=== PATIENT | female | born 1940 | race Caucasian/White ===

== ENCOUNTER 2017-01-14 10:11 | Observation (INO) | payer MEDICARE ==
[~2017-01-14] VITALS: Ht 162.6 cm; Wt 68.3 kg
[2017-01-14] VITALS (8 sets, daily range): BP systolic 100–120; BP diastolic 61–72; PULSE 45–57; RESP 17–20; O2SAT 95–99
--- NOTE | 2017-01-14 10:17 | ED.REPORT ---
HPI-Stroke / CVA Jan 14, 2017 ED Provider: Rodrick Mccord MD Pt is a 76 y/o female w/ a hx of hyperlipidemia, anxiety and panic attacks, presenting to the ED with her due to now resolved speech difficulties onset 09:45 today. The patient woke up this morning and suddenly was speaking irregularly and wasn't able to get her words out. She then began to hyperventilate and become extremely anxious. She arrives to the ED extremely anxious, hyperventilating, and has no neurological symptoms. denies facial droop, focal numbness or weakness, CP, abdominal pain, fever, chills, CANO , dizziness. Nursing Notes Stated Complaint: STROKE SYMPTOMS Nursing Notes Reviewed: Yes Allergies: Uncoded Allergies: NKDA (Allergy, Unknown, 05/17/04) NO KNOWN DRUG ALLERGIES (Ingr Allergy) (Allergy, Unknown, Y, 05/17/04) General Time Seen by Provider: 10:20 Chief Complaint Unable to speak Hx Obtained From: Patient Arrived By: Walk-in Time last known well 09:45 Sudden in Onset?: Yes Symptom Duration: 16 - 30 minutes Progression Since Onset: Resolved Severity: Current: No pain currently Severity: Maximum: No pain Risk Factors NIH Stroke Scale Level of Consciousness: Alert and responsive (0) Ask Month & Age: Both questions right (0) Open/Close Eyes/Hand Senior Enterprise Architect: Performs both tasks (0) Horizontal EO Movements: None (0) Visual Ferraro: No visual loss (0) Facial Palsy: Normal symmetry (0) Right Arm Motor Drift (10s): No drift 10 sec (0) Left Arm Motor Drift (10s): No drift 10 sec (0) Right Leg Motor Drift (5s): No drift 5 sec (0) Left Leg Motor Drift (5s): No drift 5 sec (0) Limb Ataxia FNF/Heel-Hamlin: Ataxia in 1 limb (1) (LUE) Sensation (Arms/Legs/Face): No sensory loss (0) Language Aphasia: No aphasia, normal (0) Dysarthria: No dysarthria, normal (0) Extinction/Inattention: No exctinct/inattent (0) NIHSS Score: 1 Time NIHSS Performed: 11:02 Date NIHSS Performed: Jan 14, 2017 Past Medical History Past Medical History Anxiety Hyperlipidemia Chronic hip pain Spondylolisthesis lumbar spine Ectatic abdominal aorta DDD lumbar spine Right breast CA Past Surgical History None reported Family History Noncontributory Smoking History Never Smoker Social History Much of prior medical care in [place] Alcohol Use: Denies alcohol use Drug Use: Denies drug use Other Social History: , Local resident Ambulatory Status Independent Review of Systems Constitutional: Denies: Chills, Fever Respiratory: Denies: Non-productive cough, Shortness of breath Cardiovascular: Denies: Chest pain, Dyspnea on exertion GI: Denies: Abdominal pain, Diarrhea, Nausea, Vomiting Neurologic: Reports: Unable to speak (difficulty), Denies: Abnormal movement, Bladder dysfunction, Bowel dysfunction, Change LOC , Confusion, Dizziness, Focal weakness, Headache, Lightheaded, Numbness, Problem walking, Seizure, Shaking, Spinning sensation, Syncope, Vision change, Weakness Psychiatric: Reports: Anxiety Complete sys rev & neg: except as marked. Physical Exam Initial Vital Signs Vital Signs (First) Date Time Temp Pulse Resp B/P Pulse Ox O2 Delivery O2 Flow Rate FiO2 01/14/17 10:19 52 17 112/72 99 Room Air 01/14/17 10:48 36.8 Initial VS: Reviewed ENT: Mucous membranes moist, Conjunctiva normal, No scleral icterus Abdomen / GI: Soft, Non-tender, No guarding, No rebound, No distention Extremities: Vascular intact, Neuro intact, No swelling, No tenderness Skin: Warm, Dry, No cyanosis General/Constitutional: Awake, Alert, Well appearing, Cooperative, Not toxic appearing Extremely anxious Head / Eyes: Atraumatic, Normocephalic, PERRL, EOMI Respiratory / Chest: Breath sounds NL, Breath sounds = bilat, No respiratory distress, No rales, No rhonchi, No wheezing, No retractions, No stridor Hyperventilating Cardiovascular: Heart rate NL, Regular rhythm, Heart sounds NL, No gallop, No murmurs, No rubs, Cap refill not delayed, Peripheral circulation NL Neurologic: Oriented X3, Speech NL, No motor deficits, No sensory deficits, CN II - XII intact, Cerebellar NL, Memory NL No pronator drift Senior Enterprise Architect strength equal BLE strength equal NIH = 1 per search planner: 1 point for mild LUE ataxia Psychiatric: No hallucinations, Cognitive function NL Extremely anxious Interpretation & Diagnostics Lab Results Interpretation Result Diagram: 01/14/17 1100 01/14/17 1100 Test 01/14/17 11:00 White Blood Count 8.7th/mm3 (3.8-10.1) Red Blood Count 4.43mil/mm3 (3.90-5.20) Hemoglobin 13.0g/dL (12.0-15.6) Hematocrit 38.4% (35.0-46.0) Mean Corpuscular Volume 86.7fL (81-100) Mean Corpuscular Hemoglobin 29.3pg (27.0-35.0) Mean Corpuscular Hemoglobin Concent 33.9% (32.0-37.0) Red Cell Distribution Width 15.2% (12.3-15.4) Platelet Count 320bil/L (150-400) Neutrophils (%) (Auto) 71.3% (40-74) Lymphocytes (%) (Auto) 15.7% (14-46) Monocytes (%) (Auto) 10.0% (4-12) Eosinophils (%) (Auto) 2.2% (0-5) Basophils (%) (Auto) 0.2% (0-3) Prothrombin Time 10.2sec (8.1-12.5) Prothromb Time International Ratio 0.95ratio Activated Partial Thromboplast Time 26.1sec (22.8-33.0) Sodium Level 137mEq/L (134-144) Potassium Level 4.0mEq/L (3.5-5.2) Chloride Level 102mEq/L (97-108) Carbon Dioxide Level 22mmol/L (18-29) Blood Urea Nitrogen 24mg/dL (8-27) Creatinine 1.08mg/dL (0.57-1.00) Estimat Glomerular Filtration Rate 70mL/min (>59) Glucose Level 99mg/dL (60-99) Calcium Level 9.6mg/dL (8.5-10.1) Total Bilirubin 0.3mg/dL (0.0-1.2) Aspartate Amino Transf (AST/SGOT) 26U/L (0-50) Alanine Aminotransferase (ALT/SGPT) 22U/L (0-32) Alkaline Phosphatase 47U/L (25-165) Troponin T 0.010ug/L (0.0-0.011) Total Protein 6.7g/dL (6.4-8.4) Albumin 3.8g/dL (3.4-5.0) Hold Rojas Top Tube Received (Received) ECG Interpretation ECG Interpretation: Sinus bradycardia rate 50 Time: 11:04 Interpreted by: ED physician Normal ECG Interpretation: Normal sinus rhythm, No acute ischemic changes, Normal QRS, Normal axis, Normal intervals, No change from prior ECGs, Adequate tracing CT Head Interpretation IMPRESSION: 1. No acute intracranial abnormality. 2. Moderate chronic white matter small vessel ischemic changes limiting evaluation for superimposed acute process. If clinical concern persists, recommend further evaluation with MRI. Dictated by: Mauri Vazquez M.D. on 01/14/2017 at 10:49 Approved by: Mauri Vazquez M.D. on 01/14/2017 at 10:51 Study: Head CT no contrast Interpretation / Wet Read by: Interpret - Radiologist Re-Eval/Medical Decision Med Decision/Clinical Course Pt is a 76 y/o female w/ a hx of hyperlipidemia, anxiety and panic attacks, presenting to the ED with her due to now resolved speech difficulties onset 09:45 today. The patient woke up this morning and suddenly was speaking irregularly and wasn't able to get her words out. She then began to hyperventilate and become extremely anxious. She arrives to the ED extremely anxious, hyperventilating, and has no neurological symptoms. denies facial droop, focal numbness or weakness, CP, abdominal pain, fever, chills, CANO , dizziness. Here in the emergency department the patient is clearly panicking/anxious and in my assessment has no focal findings on her neurologic examination. She is speaking clearly and fluently in full sentences. Given her rapid resolution of neurologic symptoms she is not a TPA candidate. Meds given: Ativan due to extreme anxiety Labs notable as below: CBC: Unremarkable CMP: Unremarkable Coag studies: normal EKG: Sinus bradycardia rate 50, Normal sinus rhythm, No acute ischemic changes, Normal QRS, Normal axis, Normal intervals, No change from prior ECGs, Adequate tracing CT Head: 1. No acute intracranial abnormality. 2. Moderate chronic white matter small vessel ischemic changes limiting evaluation for superimposed acute process. If clinical concern persists, recommend further evaluation with MRI. Overall presentation consistent with possible TIA though clinical picture is confounded by presence of extreme panic and anxiety. The story I am given is that she developed speech difficulties resulting in panic and anxiety though the entirety of her symptoms could presumably be caused by panic attack as well. At this time CT scan demonstrates no acute hemorrhagic process and she has no ongoing lateralizing neurologic deficits. Patient was discussed with admitting hospitalist accepted for further CVA risk stratification. She was transferred in stable condition. Re-Evaluation/Progress : Time of Eval: 11:49 Re-Evaluation/Progress Note: Pt rechecked. Informed pt of need for admission for TIA workup. Pt understands and agrees with plan for admission. All questions addressed. Consultation : Referral / Consult Name: Kendall Garcia Consulted With: Hospitalist Call Returned at: 11:52 Dredge Runner: Will see patient, Agrees with eval, Agrees with plan, Accepts admit Counseled Regarding: Diagnosis, Lab results, Need for admission Patient Discharge & Departure Impression: Primary Impression: Transient ischemic attack Transient cerebral ischemia type: unspecified Qualified Code: G45.9 - Transient cerebral ischemic attack, unspecified Additional Impressions: Anxiety Panic attack Disposition: ADMITTED TO HOSPITAL Discharge Condition All VS Reviewed: Yes Condition: Stable Referrals: Mike Evans DO (PCP) Branden Attestation Portions of this note were transcribed by Oscar Denney. I, Dr. Mccord personally performed the history, physical exam and medical decision-making; I reviewed and confirmed the accuracy of the information in the transcribed note. Signed by Branden Evans, 01/14/17 - 1030 copies to: Mike Evans Beck O MD Jan 14, 2017 10:17 OSCAR DENNEY Jan 14, 2017 10:24
[2017-01-14] MEDS ORDERED: Alum-Mag Hydrox-Simeth 30 mL Suspension PO PRN ×2 (10:30→16:30)
[2017-01-14] MEDS ORDERED: Ondansetron 2 mg/mL 2 mL Inj IVPUSH PRN ×2 (10:30→16:30)
--- NOTE | 2017-01-14 10:59 | DRSVH ---
PROCEDURE: CT BRAIN WITHOUT CONTRAST ([id number]) INDICATIONS: TIA symptoms. Word finding difficulty. TECHNIQUE: Noncontrast 4.5 mm thick angled axial sections acquired from the foramen magnum to the vertex, with c oronal reformats. COMPARISON: [facility], MR, MR BRAIN WO CON, 03/21/2016, 17:13. FINDINGS: Image quality: Excellent. CSF spaces: Basal cisterns are patent. No extra-axial fluid collections. The ventricles are symmet abiodun in size and shape. There is [id number] cerebral volume loss, with resultant ventricular an d sulcal prominence. Brain: No intracranial hemorrhage, mass, or mass effect. There are confluent subcortical, periventr icular and deep white matter hypodensities consistent with moderate chronic small vessel ischemic amisha nges. There is intracranial internal carotid artery atherosclerosis. Skull and face: Calvarium and visualized facial bones appear intact, without suspicious lesions. Sinuses: Visualized sinuses and mastoids are clear. IMPRESSION: 1. No acute intracranial abnormality. 2. Moderate chronic white matter small vessel ischemic changes limiting evaluation for superimposed acute process. If clinical concern persists, recommend further evaluation with MRI. Dictated by: Mauri Vazquez M.D. on 01/14/2017 at 10:49 Approved by: Mauri Vazquez M.D. on 01/14/2017 at 10:51
--- NOTE | 2017-01-14 11:02 | NUR ---
Evaluation completed. Please go to "Notes" then click on "Assessments and Notes" (bottom left corner of screen). Then select appropriate discipline tab on top of screen.
[2017-01-14 11:23] LABS: BASOPHILS % (AUTO) 0.2 % (0-3); EOSINOPHILS % (AUTO) 2.2 % (0-5); Mean Corpuscular Hemoglobin 29.3 pg (27.0-35.0); Mean Corpuscular Volume 86.7 fL (81-100); NEUTROPHILS % (AUTO) 71.3 % (40-74); Platelet Count 320 bil/L (150-400)
[2017-01-14 11:28] LABS: INR 0.95 ratio
[2017-01-14 11:36] LABS: TROPONIN T 0.01 ug/L (0.0-0.011)
[2017-01-14] MEDS ORDERED: LIP40 PO (12:40)
[2017-01-14] MEDS ORDERED: ALEN35TA31 PO (12:40)
[2017-01-14] MEDS ORDERED: UBID30CA8 PO (12:41)
[2017-01-14] MEDS ORDERED: HYDR-3605 PO (12:42)
[2017-01-14] MEDS ORDERED: MULT-1018 PO (12:43)
[2017-01-14] MEDS ORDERED: LEVO50TA6 PO (12:43)
[2017-01-14] MEDS ORDERED: [UNRECOGNIZED DRUG - CODE] PO (12:44)
[2017-01-14] MEDS ORDERED: VIT1TABL83 PO (12:45)
[2017-01-14] MEDS ORDERED: SERT100T9 PO (12:45)
[2017-01-14] MEDS ORDERED: CHOL200047 PO (12:46)
[2017-01-14] MEDS ORDERED: RESV250C2 PO (12:57)
--- NOTE | 2017-01-14 15:46 | NUR ---
ADMIT NOTE Admitted a 76/F into room 3014 following report from SALAZAR Mcdermott RN. Pt arrived via stretcher, able to amb to bed with SBA. Pt reports feeling "a little lightheaded" with change of position. Pt denies any pain/discomfort. IV patent, flushing easily. Pt on RA, denies any SOB/distress at this time. Family at bedside. Symptoms have resolved thus far, neuro checks negative. Pt reports "a terrible memory." Tele placed on pt, SB per monitoring manager in the 40-50's. Pt introduced to staff, bed/call light controls. Bed in lowest, locked position and call light in reach. Addendum: 01/14/17 at 1820 by EDDY HENDRICKS RN Pt seen by FINISHING TRIMMER prior to admitting to floor.
[2017-01-14] MEDS ORDERED: 0.9% Sodium Chloride 1,000 ML IV ONE (16:30)
[2017-01-14] MEDS ORDERED: Polyethylene Glycol (PEG) 17 Gm Powder PO PRN (16:30)
[2017-01-14] MEDS ORDERED: Labetalol 5 mg/mL 4 mL Inj IVPUSH PRN (16:30)
--- NOTE | 2017-01-14 17:13 | PCM.HPMED ---
Subjective Date of Service Jan 14, 2017 Primary Provider: Admitting Physician: Kendall Garcia Primary Care Physician: Mike Evans DO Attending Physician: Kendall Garcia Chief Complaint: slurred speech History of Present Illness: 76 year old, right-handed female with past medical history notable for hypertension, hypercholesterolemia, hypothyroidism, and depression/anxiety disorder presents with transient episode of "word salad" and word finding difficulty. Patient's reports that around 9:30 AM today patient was first noted to be somewhat diaphoretic and weak. She then came to the and seemingly wanted to ask if she took her pills but the only intelligible words were "did I" and the rest of her words were garbled and unintelligible. Patient reports that she realized that she was having difficulty with her speech at the time. She says she was having difficulty finding words and had a hard time uttering the words. Her helped her dress up and by the time they got in to the car to come to the hospital, which was about 20 minutes later , her speech seemed to have had returned back to normal. Patient denies any other associated weakness, numbness, paraesthesia, or change in her vision. Her notes that patient has a history of falls in the past that has been more frequent in the past one to two months. Her daughter also notes that patient seems have ongoing and worsening problem with short term memory and there is concern that she might be developing dementia. Her further notes that patient has severe depression as well as anxiety disorder and this morning seemed to have one of her "major depression" episodes before the onset of her neurologic symptoms. She seems to also have increased BLACK over the past few months. In the ED patient was noted to be quite anxious and the only medication she received was a dose of Ativan. Review of Systems: Constitutional: Negative, except as otherwise mentioned in the history above. Ophthalmologic: Negative, except as otherwise mentioned in the history above. Cardiovascular: Negative, except as otherwise mentioned in the history above. Respiratory: Negative, except as otherwise mentioned in the history above. Gastrointestinal: Negative, except as otherwise mentioned in the history above. Genitourinary: Negative, except as otherwise mentioned in the history above. Musculoskeletal: Negative, except as otherwise mentioned in the history above. Neurological: Negative, except as otherwise mentioned in the history above. Psychiatric: Negative, except as otherwise mentioned in the history above. Hematologic/Lymphatic: Negative, except as otherwise mentioned in the history above. Allergic/Immunologic: Negative, except as otherwise mentioned in the history above. Allergies Coded Allergies: No Known Drug Allergies (Verified Allergy, Unknown, 01/14/17) Home Medications Atorvastatin 40 Mg Tablet (Lipitor) 40 Mg PO HS HydrOXYzine HCl 10 Mg Tablet 10 Mg PO HS Naproxen Sodium 500 Mg Tbmp.24hr (Naproxen Sodium Cr) 500 Mg PO BID Sertraline HCl 100 Mg Tablet (Sertraline) 150 Mg PO DAILY 30 Days Levothyroxine 50 Mcg Tablet 50 Mcg PO DAILY Cholecalciferol (Vitamin D3) 2,000 Unit Capsule (Vitamin D3) 2,000 Unit PO DAILY Multivitamin 1 Each Tablet (Multi Vitamin Daily) 1 Each PO DAILY 30 Days Vit B Comp/C/FA/Iron/Vit E 1 Each Tablet (Vitamin B Complex Tablet) 1 Each PO DAILY Alendronate 35 Mg Tablet 70 Mg PO WEEKLY Resveratrol 250 Mg Capsule 250 Mg PO DAILY Ubidecarenone 30 Mg Capsule (Co Q-10) 30 Mg PO DAILY Exam Vital Signs & I/O Vital Sign- Last 8 Hours Date Time Temp Pulse Resp B/P Pulse Ox O2 Delivery O2 Flow Rate FiO2 01/14/17 12:52 46 01/14/17 12:41 36.7 45 18 120/69 99 Room Air 01/14/17 12:19 52 20 109/64 96 Room Air 01/14/17 10:48 36.8 51 20 107/61 98 Room Air 01/14/17 10:19 52 17 112/72 99 Room Air Lab & Micro Results Laboratory Tests Test 01/14/17 11:00 White Blood Count 8.7th/mm3 (3.8-10.1) Red Blood Count 4.43mil/mm3 (3.90-5.20) Hemoglobin 13.0g/dL (12.0-15.6) Hematocrit 38.4% (35.0-46.0) Mean Corpuscular Volume 86.7fL (81-100) Mean Corpuscular Hemoglobin 29.3pg (27.0-35.0) Mean Corpuscular Hemoglobin Concent 33.9% (32.0-37.0) Red Cell Distribution Width 15.2% (12.3-15.4) Platelet Count 320bil/L (150-400) Neutrophils (%) (Auto) 71.3% (40-74) Lymphocytes (%) (Auto) 15.7% (14-46) Monocytes (%) (Auto) 10.0% (4-12) Eosinophils (%) (Auto) 2.2% (0-5) Basophils (%) (Auto) 0.2% (0-3) Prothrombin Time 10.2sec (8.1-12.5) Prothromb Time International Ratio 0.95ratio Activated Partial Thromboplast Time 26.1sec (22.8-33.0) Sodium Level 137mEq/L (134-144) Potassium Level 4.0mEq/L (3.5-5.2) Chloride Level 102mEq/L (97-108) Carbon Dioxide Level 22mmol/L (18-29) Blood Urea Nitrogen 24mg/dL (8-27) Creatinine 1.08mg/dL (0.57-1.00) Estimat Glomerular Filtration Rate 70mL/min (>59) Glucose Level 99mg/dL (60-99) Calcium Level 9.6mg/dL (8.5-10.1) Total Bilirubin 0.3mg/dL (0.0-1.2) Aspartate Amino Transf (AST/SGOT) 26U/L (0-50) Alanine Aminotransferase (ALT/SGPT) 22U/L (0-32) Alkaline Phosphatase 47U/L (25-165) Troponin T 0.010ug/L (0.0-0.011) Total Protein 6.7g/dL (6.4-8.4) Albumin 3.8g/dL (3.4-5.0) Hold Rojas Top Tube Received (Received) Result Diagram: 01/14/17 1100 01/14/17 1100 PMH 1. Hypertension 2. Hyperlipidemia 3. Anxiety 4. Depression 5. Hypothyroidism 6. Possible early stages of dementia Family History Notable for mother with stroke and father with LA in his 80's Social History Hx Alcohol Use: No Hx Substance Use: No Hx Tobacco Use: No Smoking Status: Never Smoker Living Arrangement: with Family Exam Vital Signs Vital Sign - Last Date Time Temp Pulse Resp B/P Pulse Ox O2 Delivery O2 Flow Rate FiO2 01/14/17 12:52 46 01/14/17 12:41 36.7 18 120/69 99 Room Air General: Alert, Oriented X3, Cooperative, No Acute Distress Head: Normal Eyes: PERRLA, EOMI, Scleral Anicteric Nose: Mucous Membr Moist/[place] Mouth: Mucous Membr Moist/[place] Neck: Supple Chest & Lungs: Chest Wall Normal, Clear to auscultation & percussion Cardiovascular: Regular Rate/Rhythm Pulses: NL carotid, radial, femoral, DP, PT Abdomen: Non-tender, Non-distended, Normoactive bowel tones, Soft Extremities: No cyanosis/clubbing/edma bilat Skin: Other (no significant ulcer or rash) Neurological: Grossly Neurologically Intact, Cranial Nerves 2-12 Intact, Normal Speech, Strength Normal 4/4 ext, Sensation Intact Lymphatic: Other Lymph Nodes (no significant lymphadenopathy) Additional Information: Psych: appropriate affect, calm Lab and Diagnostics Result Diagram: 01/14/17 1100 01/14/17 1100 X-Rays, CTs and MRIs Date of Service: 01/14/17 1024 PROCEDURE: CT BRAIN WITHOUT CONTRAST ([id number]) IMPRESSION: 1. No acute intracranial abnormality. 2. Moderate chronic white matter small vessel ischemic changes limiting evaluation for superimposed acute process. If clinical concern persists, recommend further evaluation with MRI. Dictated by: Mauri Vazquez M.D. on 01/14/2017 at 10:49 Approved by: Mauri Vazquez M.D. on 01/14/2017 at 10:51 12-lead ECG sinus dea at about 50 bpm. no old EKG for comparison Assessment & Plan 76 year old, right-handed female with past medical history notable for hypertension, hypercholesterolemia, hypothyroidism, and depression/anxiety disorder presents with transient episode of "word salad" and word finding difficulty. # Suspected acute transient ischemic attack (TIA), present prior to admission. Symptoms resolved. - Tele - MRI brain per stroke protocol - Echo - Carotid U/S - Start ASA daily - Continue home dose Lisinopril - Fasting Lipid check - PT/OT/ST # History of hyperlipidemia - Fasting lipid panel - Lipitor # ? History of hypertension, currently normotensive - Permissive hypertension at this time given possible TIA - IV Labetalol prn # History of hypothyroidism - Check TSH - Continue with Levothyroxine # History of depression and anxiety. Currently stable - Continue with home meds # Possible early stages of dementia. - Currently oriented x 3 - Will defer further followup and management to PCP as outpatient at this time GI Prophylaxis: Not indicated VTE Prophylaxis: Sub-Q Heparin (Unfractionated) Resuscitation Status: CPR: Attempt Resuscitation (discussed and verified with patient) Time spent 65 min Kendall Garcia Jan 14, 2017 17:13
[2017-01-14] MEDS: Heparin 5,000 Unit/mL Inj SUBQ SCH (17:44)
[2017-01-14 19:34] LABS: APPEARANCE,URINE CLEAR (CLEAR,HAZY); COLOR,URINE YELLOW (YELLOW); OCCULT BLOOD,URINE NEGATIVE (NEGATIVE); PH,URINE 6.5 (5.0-8.0)
[2017-01-14 19:35] LABS: UROBILINOGEN,URINE NORMAL (NORMAL)
[2017-01-14] MEDS: hydrOXYzine Pamoate 25 mg Capsule PO SCH (21:10)
[2017-01-15] VITALS (8 sets, daily range): BP systolic 94–115; BP diastolic 55–70; PULSE 50–58; RESP 18; O2SAT 96–98
--- NOTE | 2017-01-15 02:35 | NUR ---
Sinus Antony Tele report at 0226: SB,HR down to 39,not sustain,then back to 44. Pt sleeping, asymptomatic. Dr. Guzmán paged. No order given. Continue monitoring
[2017-01-15] MEDS: Heparin 5,000 Unit/mL Inj SUBQ SCH ×2 (05:02→16:44)
[2017-01-15 06:27] LABS: Mean Corpuscular Hemoglobin 29.5 pg (27.0-35.0); Mean Corpuscular Volume 89.1 fL (81-100)
--- NOTE | 2017-01-15 06:34 | NUR ---
Low urine output Low urine output, 275ml/12hr night, bladder scan PVR 142ml, oral fluids encouraged, NS 75ml/hr running.
[2017-01-15 06:53] LABS: Magnesium 2.3 mg/dL (1.6-2.6)
[2017-01-15] MEDS: 0.9% Sodium Chloride 1,000 ML IV SCH ×2 (08:28→21:28)
[2017-01-15] MEDS ORDERED: RESVERATROL 250 MG PO SCH (08:30)
[2017-01-15] MEDS ORDERED: UBIDECARENONE 30 MG PO SCH (08:30)
--- NOTE | 2017-01-15 09:52 | NUR ---
Off unit Pt off unit to MRI, [employer] notified. Addendum: 01/15/17 at 1406 by EDDY HENDRICKS RN Pt back on unit at 1030, [employer] notified.
--- NOTE | 2017-01-15 10:52 | NUR ---
Evaluation completed. Please go to "Notes" then click on "Assessments and Notes" (bottom left corner of screen). Then select appropriate discipline tab on top of screen.
--- NOTE | 2017-01-15 11:22 | DRSVH ---
PROCEDURE: MRI STROKE PROTOCOL ([id number]) Pre- and post-contrast brain MRI, non-contrast brain MR angiogram, pre- and postcontrast neck MR aleah ogram INDICATIONS: transient slurred speech TECHNIQUE: Brain: Noncontrast axial T1 spin echo, axial T2 fast spin echo, sagittal and axial FLAIR, coronal T2 fast spin echo, axial gradient echo, axial diffusion and ADC through the brain. After the administr ation of contrast, axial 3D VIBE of the cranial vasculature and brain. Brain MRA: Non-contrast 3-D time of flight MR angiogram, with multiple ndxcydg-dbvtbuoqa-myioccyeuy (MIP) reformats performed. Neck MRA: Axial and sagittal TruFISP through the neck. Coronal dynamic MR angiogram during administ ration of contrast in the arterial and venous phases, with 3-dimenstional qhibvdv-nspvcjerb-ssadvedty n (MIP) reformats constructed from subtraction images. COMPARISON: [facility], MR, MR BRAIN WO CON, 03/21/2016, 17:13. FINDINGS: Image quality: Diagnostic. Motion artifact is present on several imaging sequences. BRAIN: Brain: There is no acute intra-axial or extra-axial hemorrhage. No extra-axial fluid collection is i dentified. There is no midline shift or mass effect. The orbits are grossly unremarkable. No focal p arenchymal masses are identified. There is no parenchymal edema. The confluent and scattered focal areas of increased flair signal are seen within the periventricular and deep white matter of the supr atentorial brain, most pronounced within the frontal, parietal, and occipital lobes. This appearance is similar to the prior study. No restricted diffusion is present. The midline intracranial struct ures are within normal limits. The major expected intracranial flow voids are visualized and unremar kable. No abnormal enhancement is present on the postcontrast images. No enhancing lesions are iden tified. The ventricles and cortical sulci are age-moderately prominent. Bones: The imaged osseous structures are grossly intact. No suspicious osseous lesions are identifie d. The included paranasal sinuses and mastoid air cells are clear. Extracranial soft tissues: The imaged overlying soft tissues of the face and head are grossly unremar kable. BRAIN MR ANGIOGRAM: Anterior circulation: Intracranial internal carotid arteries are normal in size and enhancement. Th e flow within the paired anterior cerebral arteries is normal and symmetric. The flow within the mid dle cerebral arteries is normal and symmetric. The anterior communicating artery is seen. No stenos es, occlusions, or aneurysms. Posterior circulation: The left vertebral artery is dominant when compared to the right and deforms t he basis for the basilar artery. The right vertebral artery is very small in size and terminates wit hin the right posterior inferior cerebellar artery. The flow within the posterior cerebral arteries i s normal and symmetric. No stenoses, occlusions, or aneurysms. NECK MR ANGIOGRAM: Carotids: There is a bovine aortic arch. While not adequately evaluated on this examination the asc ending thoracic aorta is measuring within the upper limits of normal for size at approximately 3.9 cm (image 2, series 20). Mild luminal irregularity is noted involving the proximal bilateral carotid b ulbs with approximately 20-30% narrowing of the lumen of the vessel within these locations. Otherwis e, the remainder of the bilateral internal and common carotid arteries are within normal limits. No occlusion or aneurysm. Posterior circulation: The origins of the vertebral arteries are not well seen, particularly on the r ight.. More superior portions of both vertebral arteries demonstrate normal course and caliber, and join to form a normal appearing basilar artery. Miscellaneous: Subclavian arteries appear patent. Pre-contrast images through the neck show no soft tissue abnormalities. Degenerative changes of the cervical spine are age-appropriate. IMPRESSION: BRAIN MRI: 1. No acute intracranial hemorrhage or ischemia. 2. Extensive chronic small vessel ischemic changes. 3. No parenchymal masses or abnormal enhancement. BRAIN MR ANGIOGRAM: Patent and unremarkable intracranial vessels. No aneurysms or occlusions. NECK MR ANGIOGRAM: 1. Mild atherosclerotic irregularity of the bilateral carotid bulbs without hemodynamically signific ant stenosis. 2. 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 3. The ascending thoracic aorta appears to be measuring within the upper limits of normal at 3.9 cm. The estimate of stenosis included in the report of the imaging study was calculated using the NASCET method Dictated by: Thiago Garces M.D. on 01/15/2017 at 11:09 Approved by: Thiago Garces M.D. on 01/15/2017 at 11:21
--- NOTE | 2017-01-15 11:36 | NUR ---
Carotid doppler Per ultrasound, carotid doppler dc'd as pt rec'd a MRI this AM which gave clear images of neck vessels. MD fontanez.
--- NOTE | 2017-01-15 12:26 | NUR ---
Case Management: PEDRO PABLO given and explained to pt. Katelin LUCASRN
--- NOTE | 2017-01-15 12:27 | NUR ---
Social Work-initial assessment/readiness for discharge: Data:See initial assessment. Pt is a 76 y/o female who was admitted on 01/14/17 for TIA per H&P. Pt's insurance is [employer] and PCP is Mike Evans DO. EMR Reviewed. Pt's readmission score is 2. SHAKILA met with pt and Sandeep at bedside, SW role explained. Pt is alert and oriented x3. Pt resides at home with her where she remains independent with ADLs. Pt does not drive and has a fww at home. Pt has no HH or SNF history. Pt has no [employer] continuous churn care or [employer] benefits. SW discussed DPOA/ advanced directive, confirms they have not completed this, SW provided them with a copy of information. PT recommending home with HH and use of FWW. SW encouraged the use of FWW. order received for HH-RN and PT. SHAKILA discussed HH services with pt and , HH choice list provided. Pt and agreeable to HH with no agency preference. SHAKILA referred to rotating calendar and made referral to [facility] for RN and PT and spoke with Hanh. SHAKILA faxed referral into [phone], Hanh confirms they will be able to see the pt on Sunday. Hanh to call back after reviewing referral. feels like they have enough help at home and declines any other resources. SHAKILA provided pt and with phone number and plan on white board in room. F2F to be complete by . SHAKILA will continue to follow. Assessment:Pt who would benefit from HH. Plan:Pt to discharge home with support from . Referral made to [facility] for RN and PT, Hanh to call SW back after reviewing fax. F2F to be complete by . SHAKILA will continue to follow. MARIA E Sanders Addendum: 01/15/17 at 1233 by RAGHAV CASTILLO Amended: Links added. Addendum: 01/15/17 at 1521 by RAGHAV CASPER SS MD order updated for RN,PT,OT,ST, and [employer]. SW updated [facility] . MARIA E Sanders
--- NOTE | 2017-01-15 13:42 | NUR ---
Evaluation completed. Please go to "Notes" then click on "Assessments and Notes" (bottom left corner of screen). Then select appropriate discipline tab on top of screen.
--- NOTE | 2017-01-15 14:20 | NUR ---
Echo Pt put production inspector light, susan and req to know when Echo would be done so she could dc. Per pulmonary function technician, there are numerous cases in front of pt and most likely done tomorrow. paged, states Echo is important and pt should stay to have test done. This was relayed to pt who began crying and yelling, stating she was leaving, she had been waiting since yesterday and she could not handle another day in the hospital. Pt and aware that they may leave AMA if they wish. states he may attempt to get Echo scheduled outpt. Pt and req to talk and let this RN know their plans. Addendum: 01/15/17 at 1523 by EDDY HENDRICKS RN Pt continues to be extremely upset and crying. paged for anti-anxiety per pt's request, PRN given PO. store mgr in to speak with pt, reiterated that pt is free to go AMA and follow up with PCP re: Echo outpt. Pt and have not made a decision yet, aware to let staff know when they know what they would like to do. Addendum: 01/15/17 at 1708 by EDDY J RUTHIE RN Pt has decided to stay.
--- NOTE | 2017-01-15 14:29 | PCM.PNMED ---
Subjective Date of Service Jan 15, 2017 Subjective Denies any new issues/complaints Exam Vital Signs Vital Sign - Last Date Time Temp Pulse Resp B/P Pulse Ox O2 Delivery O2 Flow Rate FiO2 01/15/17 13:33 36.8 52 18 101/61 98 Room Air Intake and Output 01/14/17 01/14/17 01/15/17 Cumulative From/Thru 15:00 23:00 07:00 01/14/17 10:19 - 01/15/17 05:14 Intake Total 400 ml 856 ml 1256 ml Output Total 300 ml 300 ml Balance 100 ml 856 ml 956 ml Intake Oral 400 ml 400 ml IV Total 856 ml 856 ml Output Urine Total 300 ml 300 ml # Voids 1 1 Exam General: Alert, Oriented X3, Cooperative, No Acute Distress Head: Normal Eyes: PERRLA, EOMI, Scleral Anicteric Nose: Mucous Membr Moist/[place] Mouth: Mucous Membr Moist/[place] Neck: Supple Chest & Lungs: Chest Wall Normal, Clear to auscultation bilat Cardiovascular: Regular Rate/Rhythm Pulses: NL carotid, radial, femoral, DP, PT Abdomen: Non-tender, Non-distended, Normoactive bowel tones, Soft Extremities: No cyanosis/clubbing/edema bilat Neurological: Grossly Neurologically Intact, Cranial Nerves 2-12 Intact, Normal Speech, Strength Normal 4/4 ext Psych: appropriate affect, calm IVs and Medications Medications Reviewed: Medications were reviewed in detail Lab and Diagnostics Result Diagram: 01/15/17 0545 01/15/17 0545 X-Rays, CTs and MRIs Date of Service: 01/14/17 1024 PROCEDURE: CT BRAIN WITHOUT CONTRAST ([id number]) IMPRESSION: 1. No acute intracranial abnormality. 2. Moderate chronic white matter small vessel ischemic changes limiting evaluation for superimposed acute process. If clinical concern persists, recommend further evaluation with MRI. Dictated by: Mauri Vazquez M.D. on 01/14/2017 at 10:49 Approved by: Mauri Vazquez M.D. on 01/14/2017 at 10:51 12-lead ECG sinus dea at about 50 bpm. no old EKG for comparison Assessment & Plan 76 year old, right-handed female with past medical history notable for hypertension, hypercholesterolemia, hypothyroidism, and depression/anxiety disorder presents with transient episode of "word salad" and word finding difficulty. # Suspected acute transient ischemic attack (TIA), present prior to admission. Symptoms resolved. - Tele - MRI brain without acute finding - Followup pending Echo - Continue with ASA daily - Fasting Lipid check - PT/OT/ST # History of hyperlipidemia - Fasting lipid panel showing good control - Lipitor # ? History of hypertension, currently normotensive - IV Labetalol prn # History of hypothyroidism - TSH within normal limit - Continue with Levothyroxine # History of depression and anxiety. Currently stable - Continue with home meds # Possible early stages of dementia. - Currently oriented x 3 - Will defer further followup and management to PCP as outpatient at this time Dispo: likely home with home health pending echo result GI Prophylaxis: Not indicated VTE Prophylaxis: Sub-Q Heparin (Unfractionated) VTE Mechanical Devices: Intermittant Pneumatic CD Resuscitation Status: CPR: Attempt Resuscitation (discussed and verified with patient) Kendall Garcia Jan 15, 2017 14:28
[2017-01-15] MEDS ORDERED: LORazepam 1 mg Tablet PO PRN (15:00)
[2017-01-15] MEDS: hydrOXYzine Pamoate 25 mg Capsule PO SCH (20:05)
[2017-01-16 00:10] VITALS: BP 117/79; PULSE 52; RESP 16; O2SAT 98
[2017-01-16] MEDS: Heparin 5,000 Unit/mL Inj SUBQ SCH (04:23)
[2017-01-16 04:44] VITALS: BP 111/69; PULSE 77; RESP 16; O2SAT 98
--- NOTE | 2017-01-16 06:05 | NUR ---
Eventful Night Alert and orientedx3, eager to go home. Denies any pain/N/V/SOB/fever/chills, VSS, BP 110S/80. Tele: SR or SB 50s-60s, some PACs per environmental monitoring technician. No focal neuro deficit noted,speech difficulty completely resolved, no facial droop noted, tongue midline, full strength at all extremities, sensation intact. Addendum: 01/16/17 at 0609 by SERA DOMINGUEZ RN Change Title to: Uneventful Night! Assumed care at 2230.
[2017-01-16] MEDS: 0.9% Sodium Chloride 1,000 ML IV SCH (08:19)
[2017-01-16 10:41] VITALS: PULSE 65
[2017-01-16] MEDS ORDERED: ASPI325T32 PO (10:44)
[2017-01-16 10:51] VITALS: BP 127/64; PULSE 57; RESP 18; O2SAT 97
--- NOTE | 2017-01-16 10:52 | PCM.DIMED ---
Discharge Instructions Date of Service Jan 16, 2017 Dates of Hospitalization Jan 14, 2017 at 11:48 Discharge Diagnosis Discharge Diagnosis # Suspected acute transient ischemic attack (TIA), present prior to admission. Symptoms resolved. # History of hyperlipidemia - Fasting lipid panel showing good control # History of hypothyroidism - TSH within normal limit # History of depression and anxiety. Currently stable # Possible early stages of dementia. - Will defer further followup and management to primary care provider as outpatient at this time # Elevated Cr., unclear if acute kidney injury or chronic kidney disease - Will need close followup with primary care provider to ensure resolution or continued stability Diet Discharge Diet: Heart Healthy Activity Discharge Activity: Home Health Phyical Therapy Call your provider Call your provider for: Fever or Chills, Shortness of breath, Bleeding, Chest pain, Weakness (unilateral) Patient Instructions Patient Instructions Seek immediate medical attention if any new or worsening signs or symptoms occur. Follow-up plan 1. Followup with primary care provider in 3-7 days Follow-up Provider: Mike Evans Masoud Jan 16, 2017 10:52
--- NOTE | 2017-01-16 11:19 | DRSVH ---
[facility] [address] [place] [address] Echocardiogram Report Name: STEFANI KIM RStudy Date: 01/16/2017 Height: 64 in Hospital Exam Location: [facility] Weight: 150 lb Gender: Female BSA: 1.7 m2 : 1940 Age: 76 yrs BP: 111/69 mmHg Reason For Study: TIA Performed By: Hanh Montoya Referring Physician: Nelida Evans Interpretation Summary The left ventricle is normal in size. Left ventricular systolic function is normal without focal wall motion abnormalities. The ejection fraction is estimated to be 55-60%. Assessment of diastolic parameters indicates normal left ventricular diastolic function and normal filling pressures. The right ventricle is normal in size and function. The right ventricular systolic pressure is estimated at 30 mmHg assuming a right atrial pressure of 3 mm Hg. The left atrium is severely dilated. The right atrium is normal in size. The interatrial septum is intact with no evidence for an atrial septal defect. Injection of contrast documented no interatrial shunt. There is mild mitral regurgitation. There is mild to moderate aortic regurgitation. There is mild to moderate tricuspid regurgitation. There is mild pulmonic regurgitation. The aortic root is normal size. No obvious source for cardioembolic TIA/CVA. Procedure: A two-dimensional transthoracic echocardiogram with color flow and Doppler was performed. The study quality was technically adequate. There is no prior echocardiogram noted for this patient. The patient was in normal sinus rhythm during the exam. The patient had occasional PACs during the exam. Left Ventricle: The left ventricle is normal in size. There is normal left ventricular wall thickness. Left ventricular systolic function is normal without focal wall motion abnormalities. The ejection fraction is estimated to be 55-60%. Assessment of diastolic parameters indicates normal left ventricular diastolic function and normal filling pressures. Right Ventricle: The right ventricle is normal in size and function. Atria: The left atrium is severely dilated. The right atrium is normal in size. The interatrial septum is intact with no evidence for an atrial septal defect. Injection of contrast documented no interatrial shunt. Mitral Valve: The mitral valve leaflets appear thickened, but open well. There is mild mitral regurgitation. Aortic Valve: The aortic valve is trileaflet. The aortic valve opens well. There is mild to moderate aortic regurgitation. Tricuspid Valve: The tricuspid valve leaflets are thickened and/or calcified, but open well. There is mild to moderate tricuspid regurgitation. The right ventricular systolic pressure is estimated at 30 mmHg assuming a right atrial pressure of 3 mm Hg. Pulmonic Valve: The pulmonic valve leaflets are thin and pliable; valve motion is normal. There is mild pulmonic regurgitation. Great Vessels: The aortic root is normal size. The aortic arch could not be visualized. The ascending aorta could not be visualized. The pulmonary artery is normal size. The IVC is of normal diameter and collapses greater than 50% with a sniff. This suggests a low right atrial pressure of 3 mm Hg. Pericardium/ Pleura There is no pericardial effusion. There is no pleural effusion. MMode/2D Measurements & Calculations LVIDd: 4.6 cm RA long axis LVOT diam LVIDs: 3.4 cm LA A2 area: 27.6 cm FS: 25.7 % LA A4 area: 28.1 cm RA area AoV Opening EPSS: 0.37 cm LA length (vol): 6.0 cm IVSd: 0.88 cm LA vol: 110.1 ml : 16.6 cm Ao root diam LVPWd: 0.59 cm LA vol index RA vol: 47.3 ml: 3.3 cm RA : 27.3 mm2 IVC diam: 0.78 cm LV yao. diameter/BSA LV sys. diameter/BSA RVD1 (basal) RVD2 (mid) (cm/m^2): 2.7 (cm/m^2): 2.0 : 2.2 cm TAPSE: 1.6 cm Doppler Measurements & Calculations Ao V2 max MV E max devang MV E/A: 1.4 TR max devang : 148.5 cm/sec : 68.0 cm/sec Med Peak E' Devang : 269.6 cm/sec Ao max PG MV A max devang TR max P.3 mmHg : 8.8 mmHg : 46.9 cm/sec E/E' med: 11.1 PA V2 max Ao mean PG MV P1/2t Lat Peak E' Devang : 68.3 cm/sec : 59.6 msec PA mean P.1 mmHg LVOT Max Devang E/E' lat: 7.9 PA Accel Time : 111.8 cm/sec MR ERO: 0.06 cm2 E/e' average: 9.5 : 0.06 sec Pulm A Revs Dur LIZ(I,D): 2.6 cm sev ratio MV A dur: 0.10 sec AI P1/2t : 810.4 msec AI dec slope : 160.2 cm/s2c MV dec time MV P1/2t max devang Ao V2 mean LV V1 max PG : 0.20 sec : 101.2 cm/sec MVA(P1/2t) Ao V2 VTI: 36.2 cm LV V1 VTI: 29.5 cm : 3.7 cm2 LIZ(V,D): 2.4 cm2 MR flow rate PA V2 mean LIZ indexed to BSA Pulm A Revs Dur - MV : 51.4 cm/sec (cm^2/m^2): 1.5 A Dur: 0.03 msec : 30.3 cm3/sec MR PISA radius Reading Physician:AYSE
--- NOTE | 2017-01-16 11:31 | NUR ---
Social Work-discharge: Data:EMR Reviewed. Pt is on day 2 of hospitalization for TIA per H&P. Pt is medically stable for discharge. PT/OT have cleared pt for home with HH services. has completed F2F. SHAKILA faxed in F2F and orders to [facility] for RN, PT, and OT. SHAKILA confirmed with Hanh from [facility] that she has received the fax and everything looks good. Hanh confirms they can open with pt on 01/18. SHAKILA updated pt and and they are agreeable to plan. Pt's to provide transport home. All updated and agreeable to plan. Assessment:Pt who would benefit from HH. Plan:Pt to discharge home today via POV. F2F and orders faxed into [facility] for RN,PT, and OT. All updated and agreeable to plan. MARIA E Sanders
--- NOTE | 2017-01-16 12:15 | NUR ---
DISCHARGE Pt discharged home this morning at 1140, off unit in w/c accompanied by this RN and pt's . Vital signs stable, A&O with baseline forgetfulness, denies any pain/discomfort and in no apparent distress. IV dc'd intact, all belongings returned. All instructions for diet, activity, medications, prescriptions and follow up reviewed with patient and , who report understanding.
--- NOTE | 2017-01-16 16:22 | PCM.DC.MED ---
Discharge Summary Date of Service Jan 16, 2017 Dates of Hospitalization Date of Hospital Admission Jan 14, 2017 at 11:48 Date of Discharge: Jan 16, 2017 Providers: Admitting Physician: Kendall Nielsen Primary Care Physician: Mike Evans DO Attending Physician: Kendall Nielsen Diagnosis at Time of Discharge Diagnosis at Time of Discharge # Suspected acute transient ischemic attack (TIA), present prior to admission. Symptoms resolved. # History of hyperlipidemia - Fasting lipid panel showing good control # History of hypothyroidism - TSH within normal limit # History of depression and anxiety. Currently stable # Possible early stages of dementia. - Will defer further followup and management to primary care provider as outpatient at this time # Elevated Cr., unclear if acute kidney injury or chronic kidney disease - Will need close followup with primary care provider to ensure resolution or continued stability Procedures XRay, CTs & MRIs Date of Service: 01/14/17 1024 PROCEDURE: CT BRAIN WITHOUT CONTRAST ([id number]) IMPRESSION: 1. No acute intracranial abnormality. 2. Moderate chronic white matter small vessel ischemic changes limiting evaluation for superimposed acute process. If clinical concern persists, recommend further evaluation with MRI. Dictated by: Mauri Vazquez M.D. on 01/14/2017 at 10:49 Approved by: Mauri Vazquez M.D. on 01/14/2017 at 10:51 ECG 12 Lead sinus dea at about 50 bpm. no old EKG for comparison Cardiac Echo Impression Date of Service: 01/16/17 0800 Echocardiogram Report Interpretation Summary The left ventricle is normal in size. Left ventricular systolic function is normal without focal wall motion abnormalities. The ejection fraction is estimated to be 55-60%. Assessment of diastolic parameters indicates normal left ventricular diastolic function and normal filling pressures. The right ventricle is normal in size and function. The right ventricular systolic pressure is estimated at 30 mmHg assuming a right atrial pressure of 3 mm Hg. The left atrium is severely dilated. The right atrium is normal in size. The interatrial septum is intact with no evidence for an atrial septal defect. Injection of contrast documented no interatrial shunt. There is mild mitral regurgitation. There is mild to moderate aortic regurgitation. There is mild to moderate tricuspid regurgitation. There is mild pulmonic regurgitation. The aortic root is normal size. No obvious source for cardioembolic TIA/CVA. Reading Physician:AYSE Brief History 76 year old, right-handed female with past medical history notable for hypertension, hypercholesterolemia, hypothyroidism, and depression/anxiety disorder presents with transient episode of "word salad" and word finding difficulty. Patient's reports that around 9:30 AM today patient was first noted to be somewhat diaphoretic and weak. She then came to the and seemingly wanted to ask if she took her pills but the only intelligible words were "did I" and the rest of her words were garbled and unintelligible. Patient reports that she realized that she was having difficulty with her speech at the time. She says she was having difficulty finding words and had a hard time uttering the words. Her helped her dress up and by the time they got in to the car to come to the hospital, which was about 20 minutes later , her speech seemed to have had returned back to normal. Patient denies any other associated weakness, numbness, paraesthesia, or change in her vision. Her notes that patient has a history of falls in the past that has been more frequent in the past one to two months. Her daughter also notes that patient seems have ongoing and worsening problem with short term memory and there is concern that she might be developing dementia. Her further notes that patient has severe depression as well as anxiety disorder and this morning seemed to have one of her "major depression" episodes before the onset of her neurologic symptoms. She seems to also have increased BLACK over the past few months. In the ED patient was noted to be quite anxious and the only medication she received was a dose of Ativan. Hospital Course # Suspected acute transient ischemic attack (TIA), present prior to admission. Symptoms resolved. - MRI brain without acute finding - Echo unremarkable - Continue with ASA and Lipitor daily upon discharge home # Elevated Cr., unclear if acute kidney injury or chronic kidney disease - Will need close followup with primary care provider to ensure resolution or continued stability # History of hyperlipidemia - Fasting lipid panel showing good control - Lipitor # ? History of hypertension. - Remained normotensive throughout this hospital without any BP meds # History of hypothyroidism - TSH within normal limit - Continue with Levothyroxine # History of depression and anxiety. Currently stable - Continue with home meds # Possible early stages of dementia. - Currently oriented x 3 - Will defer further followup and management to PCP as outpatient at this time Exam Vital Signs (Last) Date Time Temp Pulse Resp B/P Pulse Ox O2 Delivery O2 Flow Rate FiO2 01/16/17 10:51 37.2 57 18 127/64 97 Room Air Exam General: Alert, Oriented X3, Cooperative, No Acute Distress Head: Normal Eyes: PERRLA, EOMI, Scleral Anicteric Nose: Mucous Membr Moist/[place] Mouth: Mucous Membr Moist/[place] Neck: Supple Chest & Lungs: Chest Wall Normal, Clear to auscultation bilat Cardiovascular: Regular Rate/Rhythm Pulses: NL carotid, radial, femoral, DP, PT Abdomen: Non-tender, Non-distended, Normoactive bowel tones, Soft Extremities: No cyanosis/clubbing/edema bilat Neurological: Grossly Neurologically Intact, Cranial Nerves 2-12 Intact, Normal Speech, Strength Normal /4 ext Psych: appropriate affect, calm Test 01/14/17 11:00 01/14/17 19:00 01/15/17 05:45 01/16/17 08:30 Neutrophils (%) (Auto) 71.3% (40-74) Lymphocytes (%) (Auto) 15.7% (14-46) Monocytes (%) (Auto) 10.0% (4-12) Eosinophils (%) (Auto) 2.2% (0-5) Basophils (%) (Auto) 0.2% (0-3) Prothrombin Time 10.2sec (8.1-12.5) Prothromb Time International Ratio 0.95ratio Activated Partial Thromboplast Time 26.1sec (22.8-33.0) Total Bilirubin 0.3mg/dL (0.0-1.2) Aspartate Amino Transf (AST/SGOT) 26U/L (0-50) Alanine Aminotransferase (ALT/SGPT) 22U/L (0-32) Alkaline Phosphatase 47U/L (25-165) Troponin T 0.010ug/L (0.0-0.011) Total Protein 6.7g/dL (6.4-8.4) Albumin 3.8g/dL (3.4-5.0) Hold Rojas Top Tube Received (Received) Urine Color Yellow (YELLOW) Urine Appearance Clear (CLEAR,HAZY) Urine pH 6.5 (5.0-8.0) Urine Specific [place] 1.015 (1.003-1.035) Urine Protein Negativemg/dL (NEG,TRACE) Urine Glucose (UA) Negativemg/dL (NEGATIVE) Urine Ketones Negativemg/dL (NEGATIVE) Urine Occult Blood Negative (NEGATIVE) Urine Nitrite Negative (NEGATIVE) Urine Bilirubin Negative (NEGATIVE) Urine Urobilinogen Normalmg/dL (NORMAL) Urine Leukocyte Esterase Negative (NEGATIVE) Urine RBC 0-2/hpf (0-2) Urine WBC 0-5/hpf (0-5) Urine Epithelial Cells Few/hpf (NONE-MOD) Urine Crystals None seen (NONE SEEN) Urine Bacteria Few/hpf (NONE-FEW) Urine Hyaline Casts None/lpf (NONE) Urine Granular Casts None seen (NONE SEEN) Urine Waxy Casts None seen (NONE SEEN) Urine Red Blood Cell Casts None seen (NONE SEEN) Urine White Blood Cell Casts None seen (NONE SEEN) Urine Mucus Present (None Seen) Urine Trichomonas None seen (NONE SEEN) Urine Yeast None (NONE SEEN) Urinalysis Comment None Urine Culture Reflexed Not indicated White Blood Count 8.3th/mm3 (3.8-10.1) Red Blood Count 4.14mil/mm3 (3.90-5.20) Hemoglobin 12.2g/dL (12.0-15.6) Hematocrit 36.9% (35.0-46.0) Mean Corpuscular Volume 89.1fL (81-100) Mean Corpuscular Hemoglobin 29.5pg (27.0-35.0) Mean Corpuscular Hemoglobin Concent 33.1% (32.0-37.0) Red Cell Distribution Width 15.7% (12.3-15.4) Platelet Count 291bil/L (150-400) Magnesium Level 2.3mg/dL (1.6-2.6) Triglycerides Level 69mg/dL (0-149) Cholesterol Level 166mg/dL (100-199) LDL Cholesterol, Calculated 95.200mg/dL (0-99) VLDL Cholesterol 13.800mg/dL HDL Cholesterol 57mg/dL (>39) Cholesterol/HDL Ratio 2.91 (0.0-4.4) Thyroid Stimulating Hormone (TSH) 3.040uIU/mL (0.450-4.500) Sodium Level 139mEq/L (134-144) Potassium Level 4.4mEq/L (3.5-5.2) Chloride Level 108mEq/L (97-108) Carbon Dioxide Level 22mmol/L (18-29) Blood Urea Nitrogen 20mg/dL (8-27) Creatinine 1.17mg/dL (0.57-1.00) Estimat Glomerular Filtration Rate 64mL/min (>59) Glucose Level 95mg/dL (60-99) Calcium Level 8.4mg/dL (8.5-10.1) Discharge Medications Discharge Medications Alendronate (Alendronate) 35 Mg Tablet 70 MG PO WEEKLY (Reported) Aspirin (Aspirin) 325 Mg Tablet 325 MG PO DAILY Prescribed by: KENDALL NIELSEN MD Atorvastatin (Lipitor) 40 Mg Tablet 40 MG PO HS (Reported) Cholecalciferol (Vitamin D3) (Vitamin D3) 2,000 Unit Capsule 2,000 UNIT PO DAILY (Reported) HydrOXYzine HCl (HydrOXYzine HCl) 10 Mg Tablet 10 MG PO HS (Reported) Levothyroxine (Levothyroxine) 50 Mcg Tablet 50 MCG PO DAILY (Reported) Multivitamin (Multi Vitamin Daily) 1 Each Tablet 1 EACH PO DAILY (Reported) Resveratrol (Resveratrol) 250 Mg Capsule 250 MG PO DAILY (Reported) Sertraline HCl (Sertraline) 100 Mg Tablet 150 MG PO DAILY (Reported) Ubidecarenone (Co Q-10) 30 Mg Capsule 30 MG PO DAILY (Reported) Vit B Comp/C/FA/Iron/Vit E (Vitamin B Complex Tablet) 1 Each Tablet 1 EACH PO DAILY (Reported) Followup Plan Disposition: Home with home health PT/OT/Nursing Follow-up plan 1. Followup with primary care provider in 3-7 days Discharge Diet: Heart Healthy Discharge Activity: Home Health Phyical Therapy Patient Instructions Seek immediate medical attention if any new or worsening signs or symptoms occur. Follow-up Provider: Mike Evans DO Time spent 30 min copies to: Mike Evans Masoud Jan 16, 2017 16:22
== END 2017-01-16 11:57 | disposition home or self-care (01) ==
LOC: SED 10:11 → MPC 11:48
PROVIDERS: ADMIT Internal Medicine; ATTEND Internal Medicine
DX: R47.81 Slurred speech (principal); R06.4 Hyperventilation; F41.9 Anxiety disorder, unspecified; R29.701 NIHSS score 1; E78.5 Hyperlipidemia, unspecified; E03.9 Hypothyroidism, unspecified; F41.0 Panic disorder [episodic paroxysmal anxiety]; F32.9 Major depressive disorder, single episode, unspecified; N17.9 Acute kidney failure, unspecified; E78.00 Pure hypercholesterolemia, unspecified; I77.819 Aortic ectasia, unspecified site; M43.16 Spondylolisthesis, lumbar region; M51.36 Other intervertebral disc degeneration, lumbar region; M25.552 Pain in left hip; M25.551 Pain in right hip; Z85.3 Personal history of malignant neoplasm of breast
CPT/HCPCS: 36415; 70450; 70549; 70553; 80048; 80053; 80061; 81000; 82948; 83735; 84443; 84484; 85025; 85027; 85610; 85730; 92610; 93005; 97161; 97165; 97530; 99285; A9585; C8929; G0378; G8978; G8979; J1644; J7030; Q0177

== ENCOUNTER 2017-03-15 10:22 | Emergency (ER) | payer MEDICARE ==
[~2017-03-15] VITALS: Ht 160 cm; Wt 65.9 kg
[~2017-03-15 10:22] MED LIST: ALEN35TA31 PO; ASPI325T32 PO; CHOL200047 PO; HYDR-3605 PO; LEVO50TA6 PO; LIP40 PO; MULT-1018 PO; RESV250C2 PO; SERT100T9 PO; UBID30CA8 PO; VIT1TABL83 PO
[2017-03-15 10:29] VITALS: BP 98/65; PULSE 52; RESP 22; O2SAT 98
--- NOTE | 2017-03-15 11:04 | ED.REPORT ---
HPI-General Illness Date of Service Mar 15, 2017 ED Provider: Renato Mcmahon MD Pt is a 76 year old female with a history of dementia, spondylolisthesis, degenerative disc disease, and chronic lower back pain who presents to the ED complaining of sharp non-radiating lower back pain onset after a ground level fall today. She denies lightheadedness, chest pain, head injury, nausea, vomiting, abdominal pain, bowel and bladder incontinence, urinary retention, paraesthesia, vision change, LOC, headache, extremity pain, or any other symptoms at this time. The pt reports she tripped over something on the floor an fell. Pt rates the pain a 9/10, and she reports that her pain is exacerbated with movement. Nursing Notes Stated Complaint: FALL, LOW BACK AND WAIST PAIN Chief Complaint: Multiple Trauma/Fall Nursing Notes Reviewed: Yes Allergies: Coded Allergies: No Known Drug Allergies (Verified Allergy, Unknown, 03/15/17) Scheduled Alendronate (Alendronate) 35 Mg Tablet 70 MG PO WEEKLY Aspirin (Aspirin) 325 Mg Tablet 325 MG PO DAILY Atorvastatin (Lipitor) 40 Mg Tablet 40 MG PO HS Cholecalciferol (Vitamin D3) (Vitamin D3) 2,000 Unit Capsule 2,000 UNIT PO DAILY HydrOXYzine HCl (HydrOXYzine HCl) 10 Mg Tablet 10 MG PO HS Levothyroxine (Levothyroxine) 50 Mcg Tablet 50 MCG PO DAILY Multivitamin (Multi Vitamin Daily) 1 Each Tablet 1 EACH PO DAILY Resveratrol (Resveratrol) 250 Mg Capsule 250 MG PO DAILY Sertraline HCl (Sertraline) 100 Mg Tablet 150 MG PO DAILY Ubidecarenone (Co Q-10) 30 Mg Capsule 30 MG PO DAILY Vit B Comp/C/FA/Iron/Vit E (Vitamin B Complex Tablet) 1 Each Tablet 1 EACH PO DAILY Scheduled PRN Hydrocodone-Acetaminophen 5-325 mg (Hydrocodone-Acetaminophen 5-325 mg) 1 Each Tablet 1 TABLET PO Q4H PRN PRN For Pain General Time Seen by MD: 11:03 Chief Complaint Back pain (Lower back) Hx Obtained From: Patient Arrived By: Walk-in Onset Occurred: Just prior to arrival Symptom Duration: Since onset Location: : Back Quality: Sharp Radiation: : Does not radiate Severity: Current: Pain level 9 out of 10 Severity: Maximum: Pain level 9 out of 10 Recent Healthcare: No recent doctor visit, No recent hospitalization Similar Sx Previous: Yes Past Medical History Past Medical History Anxiety Chronic hip pain Spondylolisthesis lumbar spine Ectatic abdominal aorta DDD lumbar spine Right breast CA Reports: Hyperlipidemia Past Surgical History Right lumpectomy Family History Noncontributory Smoking History Never Smoker Social History Much of prior medical care in [place] Alcohol Use: Denies alcohol use Drug Use: Denies drug use Other Social History: Good social support, , Local resident Ambulatory Status Independent Review of Systems Denies head injury Denies paraesthesia Denies urinary retention Full Review of Systems Cardiovascular: Denies: Chest pain GI: Denies: Abdominal pain, Nausea, Vomiting Female: Denies: Incontinence (Bladder and Bowel) Musculoskeletal: Reports: Back pain (Lower back), Denies: Extremity pain Neurologic: Denies: Change LOC, Lightheaded, Vision change Complete sys rev & neg: except as marked. Physical Exam General: Airway patent, GCS of 15 --- eyes (4), verbal (5), motor (6) HEENT: Right eye normal with pupils 4-3 and briskly reactive Left eye normal with pupils 4-3 and briskly reactive Left tympanic membrane normal, right tympanic membrane normal Midface stable, no malocclusion No nasal septal hematoma No obvious external signs of trauma to the scalp appreciated Neck: nontender, trachea midline, c-collar in place Lungs: Clear to auscultation bilaterally, normal work of breathing Chest: Stable without tenderness, no crepitus. Cardiac: Regular rate and rhythm Abdomen: Abdominal tenderness to palpation, non-distended. Diffuse lower abdominal pain. Back: No ortiz tenderness to the C, T or L spine. No step-off or deformity. Mild to moderate tenderness in the lumbar spine. Rectal: Deferred Pelvis: Stable Skin: Warm and well perfused Extremities: Left upper extremity grossly normal, no deformity. Right upper extremity grossly normal, no deformity. Right lower extremity grossly normal, no deformity. Left lower extremity grossly normal, no deformity. She has intact strength and sensation. Pulses: Palpable to bilateral upper and lower extremities Neuro: Motor and sensory exams grossly within normal limits; patient localizes to pain. Vital Signs Vital Signs Date Time Temp Pulse Resp B/P Pulse Ox O2 Delivery O2 Flow Rate FiO2 03/15/17 16:54 36.8 78 16 111/67 98 Room Air 03/15/17 13:11 36.7 54 16 113/64 97 Room Air 03/15/17 10:29 36.7 52 22 98/65 98 Room Air Initial VS: Reviewed Interpretation & Diagnostics CT CHEST/ABDOMEN/PELVIS: IMPRESSION: 1. 36% compression deformity at T10, new compared to 06/19/16. Recommend correlation with point tenderness. Given history, acute to subacute injury cannot be excluded. 2. Punctate hepatic low attenuation focus too small to definitively characterize. This could represent a small cyst. No priors are available for comparison. Dictated by: Kanika Kennedy M.D. on 03/15/2017 at 13:57 Lab Results Interpretation Result Diagram: 03/15/17 1210 03/15/17 1210 Test 03/15/17 12:10 03/15/17 13:37 White Blood Count 8.2th/mm3 (3.8-10.1) Red Blood Count 4.28mil/mm3 (3.90-5.20) Hemoglobin 12.5g/dL (12.0-15.6) Hematocrit 37.2% (35.0-46.0) Mean Corpuscular Volume 86.9fL (81-100) Mean Corpuscular Hemoglobin 29.2pg (27.0-35.0) Mean Corpuscular Hemoglobin Concent 33.6% (32.0-37.0) Red Cell Distribution Width 15.0% (12.3-15.4) Platelet Count 300bil/L (150-400) Neutrophils (%) (Auto) 76.9% (40-74) Lymphocytes (%) (Auto) 13.6% (14-46) Monocytes (%) (Auto) 7.8% (4-12) Eosinophils (%) (Auto) 1.1% (0-5) Basophils (%) (Auto) 0.2% (0-3) Prothrombin Time 10.7sec (8.1-12.5) Prothromb Time International Ratio 1.00ratio Activated Partial Thromboplast Time 26.9sec (22.8-33.0) Sodium Level 141mEq/L (134-144) Potassium Level 4.9mEq/L (3.5-5.2) Chloride Level 104mEq/L (97-108) Carbon Dioxide Level 22mmol/L (18-29) Blood Urea Nitrogen 30mg/dL (8-27) Creatinine 1.20mg/dL (0.57-1.00) Estimat Glomerular Filtration Rate 62mL/min (>59) Glucose Level 93mg/dL (60-99) Calcium Level 9.2mg/dL (8.5-10.1) Magnesium Level 2.4mg/dL (1.6-2.6) Total Bilirubin 0.3mg/dL (0.0-1.2) Aspartate Amino Transf (AST/SGOT) 52U/L (0-50) Alanine Aminotransferase (ALT/SGPT) 23U/L (0-32) Alkaline Phosphatase 52U/L (25-165) Troponin T < 0.010ug/L (0.0-0.011) Total Protein 6.8g/dL (6.4-8.4) Albumin 3.9g/dL (3.4-5.0) Lipase 38U/L (13-60) Hold Rojas Top Tube Received (Received) Lab Results Interpretation: CBC - grossly within normal limits BUN - 20 Creatinine - 1.2 Troponin - Grossly within normal limits Lipase - Grossly within normal limits ECG Interpretation ECG Interpretation: Sinus rhythm with a rate of 47, rate of 50 previously. Low voltage Time: 11:59 Interpreted by: ED physician CT Head Interpretation IMPRESSION: No trauma found. Dictated by: Mele Ratliff M.D. on 03/15/2017 at 14:43 Study: Head CT no contrast Interpretation / Wet Read by: Interpret - Radiologist CT C-Spine Interpretation IMPRESSION: No trauma found. Dictated by: Mele Ratliff M.D. on 03/15/2017 at 14:43 Study type: CT no contrast Interpretation / Wet Read by: Interpret - Radiologist Re-Eval/Medical Decision Med Decision/Clinical Course In summary, 76-year-old female presenting to the ED for evaluation after a clear mechanical fall. Did not hit her head or lose consciousness. Did not have any chest pain, shortness of breath, or other prodromal symptoms - she is sure that she just tripped. With respect to her back pain, she has no bowel or bladder incontinence, no urinary retention, no paresthesias, no weakness, no decreased sensation, etc. She does have some abdominal tenderness on examination and given her severe pain, as well as her age, trauma scans were obtained. Her only acute finding on examination is a 36% compression deformity of T10; this is consistent with her clinical exam and I suspect this is responsible for her symptoms. As above, no red flag symptoms that would suggest a compressive syndrome. Laboratory studies reviewed; no acute abnormalities that would require intervention at this time. Discussed with orthopedics; appreciate their input. I will place an order for a TLSO brace and I have given her a referral to a spine clinic in [place]. Very careful return precautions were discussed with the patient at length; patient agreeable to the plan as stated, no further questions. Source of Hx: Old records Time of Eval: 15:34 Re-Evaluation/Progress Note: Pt rechecked. She denies bladder and bowel incontinence, urinary retention, and parathesia. She has intact strength and sensation. Agrees with plan for discharge. F/u instructions and return to ED warnings given. All questions addressed. Consultation : Referral / Consult Name: Dayo Tate MD Consulted With: Orthopedic Call Returned at: 15:33 Dry House Operator: Agrees with eval, Agrees with plan Note: Discussed patient's case. He recommends follow up with a spine surgeon and a tlso brace is appropriate. Counseled Regarding: Diagnosis, Lab results, Need for follow-up, When/why to return to ED Discharge & Departure Primary Impression: Thoracic compression fracture Encounter type: initial encounter Fracture type: closed Qualified Code: S22.000A - Wedge compression fracture of unspecified thoracic vertebra, initial encounter for closed fracture Disposition: Home Discharge Condition All VS Reviewed: Yes Condition: Stable Patient Instructions: Vertebral Compression Fracture (ED) Additional Instructions: You have been seen in the emergency department after a fall earlier today. Your workup today demonstrates a fracture of the thoracic spine. I have written you a prescription for a back brace called a TLSO brace. I've also written a prescription for pain medication to be used as needed. As discussed, you should follow up with the spine surgeon ([phone]) for reevaluation within the next week, and call your regular doctor tomorrow to schedule a follow up appointment. Return to the ED immediately if you develop bowel or bladder incontinence, urinary retention, numbness or tingling in your legs, weakness, chest pain, abdominal pain, or if there is anything else of concern to you. Referrals: Mike Evans DO (PCP) Scribe Attestation Portions of this note were transcribed by Naomi iGpson and Mendy Jules. I, Dr. Mcmahon personally performed the history, physical exam and medical decision- making; I reviewed and confirmed the accuracy of the information in the transcribed note. Signed by: Branden Williamson, 03/15/17 copies to: Mike Evans William B MD Mar 15, 2017 11:04 Naomi Gipson Mar 15, 2017 11:47 Mendy Olivera Mar 15, 2017 12:03 copies to: Mike Evans William B MD Mar 15, 2017 11:04 Naomi Gipson Mar 15, 2017 11:47 Mendy Olivera Mar 15, 2017 12:03
[2017-03-15] MEDS ORDERED: 0.9% Sodium Chloride 1,000 ML IV ONE (11:30)
[2017-03-15] MEDS: HYDROmorphone 0.5 mg/0.5 mL iSecure Syringe IVPUSH PRN ×2 (12:07→15:03)
[2017-03-15 12:23] LABS: BASOPHILS % (AUTO) 0.2 % (0-3); EOSINOPHILS % (AUTO) 1.1 % (0-5); MONOCYTES % (AUTO) 7.8 % (4-12); Mean Corpuscular Hemoglobin 29.2 pg (27.0-35.0); Mean Corpuscular Volume 86.9 fL (81-100); NEUTROPHILS % (AUTO) 76.9 % (40-74); Platelet Count 300 bil/L (150-400)
[2017-03-15 12:57] LABS: TROPONIN T < 0.010 ug/L (0.0-0.011)
[2017-03-15 12:58] LABS: Lipase 38 U/L (13-60); Magnesium 2.4 mg/dL (1.6-2.6)
[2017-03-15 13:11] VITALS: BP 113/64; PULSE 54; RESP 16; O2SAT 97
--- NOTE | 2017-03-15 14:45 | DRSVH ---
PROCEDURE: CT BRAIN WITHOUT CONTRAST ([id number]) INDICATIONS: fall with significant back/abd pain TECHNIQUE: Noncontrast 4.5 mm thick angled axial sections acquired from the foramen magnum to the vertex, with c oronal reformats. COMPARISON: [facility], CT, CT BRAIN WO CON, 01/14/2017, 10:38. FINDINGS: Image quality: Excellent. CSF spaces: Basal cisterns are patent. No extra-axial fluid collections. The ventricles are symmet abiodun in size and shape. Brain: No intracranial bleeds or masses. There is cerebral volume loss for age, with resultant vent ricular and sulcal prominence. There are periventricular and deep white matter chronic small vessel ischemic changes. There is intracranial internal carotid artery atherosclerosis. Skull and face: Calvarium and visualized facial bones appear intact, without suspicious lesions. Sinuses: Visualized sinuses and mastoids are clear. IMPRESSION: No trauma found. Dictated by: Mele Ratliff M.D. on 03/15/2017 at 14:43 Approved by: Mele Ratliff M.D. on 03/15/2017 at 14:43
--- NOTE | 2017-03-15 14:46 | DRSVH ---
PROCEDURE: CT CERVICAL SPINE WITHOUT CONTRAST ([id number]) INDICATIONS: fall with significant back/abd pain TECHNIQUE: Noncontrast 3 mm thick sections acquired from the skull base to the T4 level. Sagittal and coronal r eformats were then constructed. For radiation dose reduction, the following was used: automated exp osure control, adjustment of mA and/or kV according to patient size. COMPARISON: None. FINDINGS: Image quality: Excellent. Bones: No fractures or dislocations. Visualized superior ribs are intact. Soft tissues: Prevertebral soft tissues are normal in thickness. No paravertebral hematomas. No ap ical pneumothoraces. IMPRESSION: No trauma found. Dictated by: Mele Ratliff M.D. on 03/15/2017 at 14:43 Approved by: Mele Ratliff M.D. on 03/15/2017 at 14:44
--- NOTE | 2017-03-15 15:06 | DRSVH ---
PROCEDURE: CT CHEST, ABDOMEN AND PELVIS WITH CONTRAST ([id number]) INDICATIONS: fall with significant back/abd pain TECHNIQUE: After the administration of intravenous contrast, 5 mm thick sections acquired from the lung apices t o the symphysis. 5 mm thick coronal and sagittal reformats were acquired. Additional 7 mm thick cor onal maximum intensity projection (MIP) reformats acquired through the lungs. Optional 10-minute del ayed imaging may be performed from the kidneys to the bladder. For radiation dose reduction, the fol lowing was used: automated exposure control, adjustment of mA and/or kV according to patient size. COMPARISON: [facility], CR, XR LUMBAR SPINE 2 OR 3VW, 06/19/2016, 14:49. [facility], CR, XR LUMBAR SPINE LAT FL EX 3VW, 07/20/2016, 12:18. FINDINGS: Image quality: Excellent. CHEST: Lungs: No pulmonary contusions or lacerations. No acute airspace opacities. No pneumothorax or hem othorax. Central and peripheral airways appear patent and normal in caliber. Mediastinum: No mediastinal hematomas. Heart size is normal. No pericardial effusion. Thoracic ao rta and pulmonary arteries demonstrate normal size and enhancement. No mediastinal or hilar adenopat hy. Esophagus is normal in caliber. No hiatal hernia. Chest wall: No rib fractures. No subcutaneous emphysema. No axillary or supraclavicular adenopathy . Thyroid gland is unremarkable. ABDOMEN: Solid organs: Liver and spleen are normal in size, without lacerations. Punctate radiopaque focus o f low attenuation series 4 image 56 is present, too small to definitively characterize. Gallbladder i s unremarkable. Biliary system is non-dilated. Pancreas enhances normally, without transection. No adrenal hematomas. Both kidneys enhance normally, without hydronephrosis or lacerations. Peritoneum and bowel: No free fluid or air. Unenhanced bowel loops demonstrate normal wall thicknes s and caliber. Nodes and vessels: No retroperitoneal or mesenteric adenopathy. Aorta and inferior vena cava are no rmal in size and enhancement. Miscellaneous: No ventral hernias. PELVIS: Genitourinary: Bladder wall thickness is normal. Miscellaneous: No inguinal hernias or adenopathy. Bones: Pelvic ring and hip joints appear intact. Approximate 36% T10 compression deformity is presen t, new compared to 06/19/16. Trace anterolisthesis of C4 on C5. IMPRESSION: 1. 36% compression deformity at T10, new compared to 06/19/16. Recommend correlation with point tende rness. Given history, acute to subacute injury cannot be excluded. 2. Punctate hepatic low attenuation focus too small to definitively characterize. This could represen t a small cyst. No priors are available for comparison. Dictated by: Kanika Kennedy M.D. on 03/15/2017 at 13:57 Approved by: Kanika Kennedy M.D. on 03/15/2017 at 14:04
[2017-03-15] MEDS ORDERED: HYDROcodone-APAP 10-325 mg PO ONE (15:35)
[2017-03-15] MEDS ORDERED: BACK1EAC9 MC (15:39)
[2017-03-15] MEDS ORDERED: HYDR-4003 PO (15:44)
[2017-03-15 16:54] VITALS: BP 111/67; PULSE 78; RESP 16; O2SAT 98
== END 2017-03-15 17:52 | disposition home or self-care (01) ==
LOC: SED 10:22
DX: S22.070A Wedge compression fracture of T9-T10 vertebra, initial encounter for closed fracture (principal); W01.0XXA Fall on same level from slipping, tripping and stumbling without subsequent striking against object, initial encounter; Y93.89 Activity, other specified; Y92.89 Other specified places as the place of occurrence of the external cause; Y99.8 Other external cause status; F03.90 Unspecified dementia, unspecified severity, without behavioral disturbance, psychotic disturbance, mood disturbance, and anxiety; F41.9 Anxiety disorder, unspecified; E78.5 Hyperlipidemia, unspecified; Z79.82 Long term (current) use of aspirin
CPT/HCPCS: 36415; 70450; 71260; 72125; 74177; 80053; 83690; 83735; 84484; 85025; 85610; 85730; 86850; 93005; 96361; 96374; 96376; 99285; J1170; J7030

== ENCOUNTER 2017-03-29 11:53 | Emergency (ER) | payer MEDICARE ==
[~2017-03-29] VITALS: Ht 160 cm; Wt 65.0 kg
[~2017-03-29 11:53] MED LIST changes: +BACK1EAC9 MC; +HYDR-4003 PO
[2017-03-29 12:06] VITALS: BP_SYST 105; BP_SYST 128; BP_SYST 18; BP_DIAS 57; BP_DIAS 72; PULSE 76; RESP 26; O2SAT 96
--- NOTE | 2017-03-29 12:47 | ED.REPORT ---
HPI-General Illness Date of Service Mar 29, 2017 ED Provider: Maryan Archibald MD Patient is a 76 year old female with a hx of spondylolisthesis of the lumbar spine and DDD of the lumbar spine who presents to the ED complaining of fecal incontinence onset 3 days ago. Associated symptoms include diarrhea and lower abdominal pain. Patient also complains of severe back pain s/p obtaining a T-10 compression fracture s/p a GLF. She was seen in the department after her fall, prescribed hydrocodone, and referred to the spine clinic in [place]. She has been using a [employer] back brace. She denies decreased sensation, focal weakness, or any other symptoms. Hydrocodone has not been managing her pain so she has also been taking NSAIDS. She has not taken any antibiotics recently. Nursing Notes Stated Complaint: INCONTINENCE Chief Complaint: General Complaint Nursing Notes Reviewed: Yes Allergies: Coded Allergies: No Known Drug Allergies (Verified Allergy, Unknown, 03/15/17) Scheduled Alendronate Sodium/Vitamin D3 (Fosamax Plus D 70 mg-2,800 Iu) 1 Each Tablet 1 EACH PO WEEKLY Aspirin (Aspirin) 325 Mg Tablet 325 MG PO DAILY Atorvastatin Calcium (Atorvastatin Calcium) 40 Mg Tablet 40 MG PO HS Calcitonin [place] (Miacalcin) 30 [place]/3.7 Ml Nasalspr 1 SPRAY NA DAILY [place] in 1 Nostril (Alternating Nostrils) Daily Cholecalciferol (Vitamin D3) (Vitamin D3) 2,000 Unit Capsule 2,000 UNIT PO DAILY Clonazepam (Clonazepam) 0.5 Mg Tablet 0.5 MG PO QAM Donepezil (Donepezil) 10 Mg Tablet 10 MG PO QAM Levothyroxine (Levothyroxine) 50 Mcg Tablet 50 MCG PO QAM Multivitamin (Multi Vitamin Daily) 1 Each Tablet 1 EACH PO DAILY Resveratrol (Resveratrol) 250 Mg Capsule 250 MG PO DAILY Sertraline HCl (Sertraline) 100 Mg Tablet 150 MG PO HS Ubidecarenone (Co Q-10) 30 Mg Capsule 30 MG PO DAILY hydrOXYzine Hcl (HydrOXYzine Hcl) 25 Mg Tablet 25 MG PO HS Scheduled PRN Hydrocodone-Acetaminophen 5-325 mg (Hydrocodone-Acetaminophen 5-325 mg) 1 Each Tablet 1 TABLET PO Q4H PRN PRN For Pain oxyCODONE-Acetaminophen 5-325 mg (oxyCODONE-Acetaminophen 5-325 mg) 1 Each Tablet 1-2 TAB PO Q6H PRN PRN For Pain General Time Seen by MD: 12:19 Chief Complaint Other (fecal incontinence) Hx Obtained From: Patient, Spouse Arrived By: Walk-in Sudden in Onset?: Yes Onset Occurred: 3 days ago Symptom Duration: Since onset Location: : Back Quality: Painful Severity: Current: Severe Severity: Maximum: Severe Recent Healthcare: Recent doctor visit Past Medical History Past Medical History Anxiety Chronic hip pain Spondylolisthesis lumbar spine Ectatic abdominal aorta DDD lumbar spine Right breast CA dementia depression Reports: Hyperlipidemia Past Surgical History Right lumpectomy Reports: Cataract surgery Family History Noncontributory Smoking History Never Smoker Social History Much of prior medical care in [place] Alcohol Use: Denies alcohol use Drug Use: Denies drug use Other Social History: Good social support, , Local resident Ambulatory Status Independent Review of Systems Full Review of Systems Constitutional: Denies: Chills, Fever GI: Reports: Abdominal pain, Diarrhea Musculoskeletal: Reports: Back pain Neurologic: Reports: Bowel dysfunction, Denies: Focal weakness, Numbness Complete sys rev & neg: except as marked. Physical Exam Vital Signs Vital Signs Date Time Temp Pulse Resp B/P Pulse Ox O2 Delivery O2 Flow Rate FiO2 03/29/17 13:57 36.6 60 127/64 98 Room Air 03/29/17 12:50 104/65 03/29/17 12:06 36.9 76 26 105/57 96 Room Air Initial VS: Reviewed, Vital signs normal Head / Eyes: Atraumatic, Normocephalic Neck: Supple, Full range of motion Skin: Warm, Dry Psychiatric: Mood/affect normal, Behavior normal, Normal thought content General/Constitutional: Awake, Alert Distress / Hydration: Positive: Distress moderate Respiratory / Chest: Atraumatic, Breath sounds NL, Breath sounds = bilat, No respiratory distress Cardiovascular: Heart rate NL, Regular rhythm, Heart sounds NL Back: Atraumatic moderate scoliosis tenderness at T10 with surrounding tenderness and muscle spasm. No skin changes Lower Extremity / Pelvis / MS: Neurologic intact, Vascular intact Rectum / Perineum: Sphincter tone NL, No saddle anesthesia Neurologic: Oriented X3, Speech NL, No sensory deficits Interpretation & Diagnostics Interpretation & Diagnostics: ua- not a clean catch. trace LE, tr blood suspect contaminant. Lab Results Interpretation Result Diagram: 03/29/17 1311 03/29/17 1311 Test 8/24/17 13:11 White Blood Count 12.9th/mm3 (3.8-10.1) Red Blood Count 4.27mil/mm3 (3.90-5.20) Hemoglobin 12.4g/dL (12.0-15.6) Hematocrit 36.6% (35.0-46.0) Mean Corpuscular Volume 85.7fL (81-100) Mean Corpuscular Hemoglobin 29.0pg (27.0-35.0) Mean Corpuscular Hemoglobin Concent 33.9% (32.0-37.0) Red Cell Distribution Width 15.7% (12.3-15.4) Platelet Count 343bil/L (150-400) Neutrophils (%) (Auto) 86.2% (40-74) Lymphocytes (%) (Auto) 6.8% (14-46) Monocytes (%) (Auto) 6.0% (4-12) Eosinophils (%) (Auto) 0.6% (0-5) Basophils (%) (Auto) 0.2% (0-3) Sodium Level 142mEq/L (134-144) Potassium Level 3.8mEq/L (3.5-5.2) Chloride Level 105mEq/L (97-108) Carbon Dioxide Level 19mmol/L (18-29) Blood Urea Nitrogen 24mg/dL (8-27) Creatinine 1.17mg/dL (0.57-1.00) Estimat Glomerular Filtration Rate 64mL/min (>59) Glucose Level 107mg/dL (60-99) Calcium Level 9.1mg/dL (8.5-10.1) Total Bilirubin 0.2mg/dL (0.0-1.2) Aspartate Amino Transf (AST/SGOT) 43U/L (0-50) Alanine Aminotransferase (ALT/SGPT) 21U/L (0-32) Alkaline Phosphatase 83U/L (25-165) Total Protein 7.3g/dL (6.4-8.4) Albumin 3.9g/dL (3.4-5.0) Hold Rojas Top Tube Received (Received) X-Ray Abdominal Interpretation IMPRESSION: 1. No acute intra-abdominal findings. Dictated by: Liza Laura M.D. on 03/29/2017 at 13:28 Approved by: Liza Laura M.D. on 03/29/2017 at 13:29 Study: Portable Interpretation / Wet Read by: Interpret - Radiologist X-Ray Interpretation Xray Interpretation: IMPRESSION: Degenerative change. Anterolisthesis. No acute radiographic findings. Dictated by: Liza Laura M.D. on 03/29/2017 at 13:31 Approved by: Liza Laura M.D. on 03/29/2017 at 13:32 Study Performed: Lumbar spine, 2-3 vw Interpretation / Wet Read by: Interpret - Radiologist Xray Interpretation: IMPRESSION: Severe T10 wedge compression deformity as before. Degenerative change. No acute radiographic findings. If there is continued pain, followup exam or additional imaging such as MRI or CT could be performed for further assessment. Dictated by: Liza Laura M.D. on 03/29/2017 at 13:29 Approved by: Liza Laura M.D. on 03/29/2017 at 13:31 Study Performed: Thoracic spine, 2 vw Interpretation / Wet Read by: Interpret - Radiologist Discharge & Departure Primary Impression: Thoracic compression fracture Additional Impression: Diarrhea Ruled Out: Cauda equina compression Disposition: Home thank you for coming in today. I too would be worried about diarhea "surprises" that have developed over the last 3-4 days. There is nothing on your exam to sugget that there is new nerve damage or nerve compression from your known compression fracture. Your xrays show no stool in your colon and you have not been on antibiotics recently. the diarrhea may be viral, may be related to pain but does not appear to be life threatening. You can try some Pepto-Bismol but you may find that the Percocet I am going to recommend is just as effective in slowing or diarrhea. For your poorly controlled pain due to your T10 compression fracture; -Continue follow-up with the neurosurgeon -Start 200 mg of ibuprofen (1 [id number] Motrin) a.m. and p.m. -Use your back brace -Stop your vicodin/hydrocodone -use 1-2 percoset every 6 hours instead of the vicodin -do not add in excedrin (the tylenol and asprin in the rest of the mix just get confusing) -use one spray of nasal calcitonin for the next month. this is a treatment for osteoporosis and one of its side effects is that it can help with the pain of acute compression fractures If you are getting worse, please return to the ER I hope you feel better Referrals: Mike Evans DO (PCP) Branden Attestation Portions of this note were transcribed by Washington Mosquera. I, Dr. Archibald personally performed the history, physical exam and medical decision-making; I reviewed and confirmed the accuracy of the information in the transcribed note. Signed: Branden Eng, 03/29/17 copies to: Mike Evans Shawna L MD Mar 29, 2017 12:47 WASHINGTON MOSQUERA Mar 29, 2017 13:00
[2017-03-29 12:50] VITALS: BP 104/65
[2017-03-29] MEDS ORDERED: Ketorolac 15 mg/mL Inj IVPUSH ONE (12:50)
[2017-03-29] MEDS ORDERED: HYDROmorphone 0.5 mg/0.5 mL iSecure Syringe IVPUSH PRN (12:50)
[2017-03-29 13:17] LABS: BASOPHILS % (AUTO) 0.2 % (0-3); EOSINOPHILS % (AUTO) 0.6 % (0-5); Mean Corpuscular Volume 85.7 fL (81-100); NEUTROPHILS % (AUTO) 86.2 % (40-74); Platelet Count 343 bil/L (150-400)
--- NOTE | 2017-03-29 13:30 | DRSVH ---
PROCEDURE: X-RAY ABDOMEN, ONE VIEW ([id number]) INDICATIONS: pain TECHNIQUE: One view of the abdomen acquired. COMPARISON: None. FINDINGS: Surgical changes and devices: None. Bowel: Bowel gas pattern is normal. Soft tissues: No suspicious abdominal calcifications. Visualized solid organ contours appear normal in size. Bones: No suspicious bony lesions. IMPRESSION: 1. No acute intra-abdominal findings. Dictated by: Liza Laura M.D. on 03/29/2017 at 13:28 Approved by: Liza Laura M.D. on 03/29/2017 at 13:29
--- NOTE | 2017-03-29 13:33 | DRSVH ---
PROCEDURE: X-RAY THORACIC SPINE, 2 VIEWS INDICATIONS: pain TECHNIQUE: 3 views of the thoracic spine were acquired. COMPARISON: [facility], CT, CT CHEST ABD PELVIS W CON, 03/15/2017, 14:20. FINDINGS: Bones: Severe T10 compression deformity is redemonstrated. No new wedge compression deformities. Mode rate to severe degenerative changes present throughout the thoracic spine including intervertebral di sc space narrowing, endplate sclerosis, and osteophytosis. Bones are osteopenic. Soft tissues: No paravertebral stripe thickening. IMPRESSION: Severe T10 wedge compression deformity as before. Degenerative change. No acute radiograp hic findings. If there is continued pain, followup exam or additional imaging such as MRI or CT could be performed for further assessment. Dictated by: Liza Laura M.D. on 03/29/2017 at 13:29 Approved by: Liza Laura M.D. on 03/29/2017 at 13:31
--- NOTE | 2017-03-29 13:34 | DRSVH ---
PROCEDURE: X-RAY LUMBAR SPINE, 2 OR 3 VIEW INDICATIONS: pain TECHNIQUE: 3 views of the lumbar spine were acquired. COMPARISON: [facility], CR, XR LUMBAR SPINE LAT FL EX 3VW, 07/20/2016, 12:18. [facility], CR, XR LUMBAR SPINE 2 OR 3VW, 06/19/2016, 14:49. FINDINGS: Bones: 5 [id number] vertebrae are present. There is grade I L4 on L5 anterolisthesis. Mild degen erative changes present at L5-S1. Facet sclerosis is present throughout the mid and lower lumbar spin e as before. No vertebral body compression fractures. No suspicious bony lesions. Soft tissues: Overlying bowel gas pattern is normal. No suspicious soft tissue calcifications. IMPRESSION: Degenerative change. Anterolisthesis. No acute radiographic findings. Dictated by: Liza Laura M.D. on 03/29/2017 at 13:31 Approved by: Liza Laura M.D. on 03/29/2017 at 13:32
[2017-03-29 13:57] VITALS: BP 127/64; PULSE 60; O2SAT 98
[2017-03-29] MEDS ORDERED: KLO5T PO (14:24)
[2017-03-29] MEDS ORDERED: ATOR40TA69 PO (14:24)
[2017-03-29] MEDS ORDERED: DONE10TA42 PO (14:24)
[2017-03-29] MEDS ORDERED: HYDR-656 PO (14:24)
[2017-03-29] MEDS ORDERED: ALEN70TA46 PO (14:26)
[2017-03-29] MEDS ORDERED: ALEN1TAB2 PO (15:13)
[2017-03-29] MEDS ORDERED: OXYC1TAB24 PO (15:53)
[2017-03-29] MEDS ORDERED: CLC200SP2 (15:53)
[2017-03-29 16:52] VITALS: BP 111/60; PULSE 56; O2SAT 100
== END 2017-03-29 16:53 | disposition home or self-care (01) ==
LOC: SED 11:53
DX: S22.070A Wedge compression fracture of T9-T10 vertebra, initial encounter for closed fracture (principal); W18.39XA Other fall on same level, initial encounter; Y93.89 Activity, other specified; Y92.89 Other specified places as the place of occurrence of the external cause; Y99.8 Other external cause status; R19.7 Diarrhea, unspecified; F03.90 Unspecified dementia, unspecified severity, without behavioral disturbance, psychotic disturbance, mood disturbance, and anxiety; E78.5 Hyperlipidemia, unspecified; F41.8 Other specified anxiety disorders; Z79.82 Long term (current) use of aspirin
CPT/HCPCS: 36415; 72070; 72100; 74000; 80053; 81002; 85025; 96374; 99284; J1885